=== PATIENT | female | born 1940 | race African-American/Black ===

== ENCOUNTER 2024-09-09 23:23 | Emergency (ER) | payer MEDICARE, OTHER ==
[~2024-09-09] VITALS: Ht 167.6 cm; Wt 85.0 kg
[~2024-09-09 23:23] MED LIST: ALB0.5UD IH; ALPR-624 PO; ASPI-1265 PO; ATOR20TA66 PO; CLOP75TA34 PO; DULA1.5P SUBCUT; EMPA10TA PO; ERGO500041 PO; EZET10TA48 PO; FLUT1BLS4 INH; HYDR25TA90 PO; INSU100V41; LACT-373 PO; LOP12.5T PO; LOSA50TA64 PO; UBRO100T; [UNRECOGNIZED DRUG - CODE]
[2024-09-10] MEDS: ibuprofen tablet 400 MG TABLET PO ONE (01:20)
[2024-09-10] MEDS: hydrALAZINE 25 MG tablet PO ONE (01:30)
[2024-09-10 01:32] VITALS: TEMP 98.2
[2024-09-10 02:09] VITALS: BP 197/86; PULSE 62; RESP 18; O2SAT 99
== END 2024-09-10 02:18 | disposition home or self-care (01) ==
LOC: ER 23:24
DX: S00.83XA Contusion of other part of head, initial encounter (principal); W07.XXXA Fall from chair, initial encounter; Y93.89 Activity, other specified; Y92.89 Other specified places as the place of occurrence of the external cause; Y99.8 Other external cause status
CPT/HCPCS: 70450; 70486; 72125; 99284

== ENCOUNTER 2024-11-03 04:31 | Emergency (ER) | payer MEDICARE, OTHER ==
[~2024-11-03] VITALS: Ht 154.9 cm; Wt 66.8 kg
--- NOTE | 2024-11-03 04:50 | Physician Documentation ---
History of Present Illness ~ Chief Complaint: Headache Stated Complaint: BACK PAIN/HEADACHE Time Seen by MD: 04:46 OK to notify your PCP?: Yes Primary Medical Doctor: none Source: patient Mode of Arrival: POV Exam Limitations: no limitations HPI This is a very pleasant 83-year-old female who comes in for evaluation of left- sided headache. She has history of migraines but they typically are on the right side. The headache has been present for the last several days. No obvious trigger, trauma provocation. His that this is really bad headache, but did not attempt to treat it. No particular palliating or aggravating factors. Denies photophobia. Also reports chronic back pain. Exacerbated in the last couple of days as well. No red flags of back pain such as bladder or bowel incontinence, urinary retention, saddle paresthesias. Denies any other concerns. Denies focal or lateralizing deficits. Able to continue to ambulate with her cane. No concern for tobacco, alcohol or illicit substances use Medication Reconciliation Allergies: Coded Allergies: No Known Allergies (Unverified , 11/03/24) Scheduled Aspirin (Aspirin), 1 TAB.CHEW PO DAILY, (Reported) Atorvastatin Calcium (Atorvastatin Calcium), 40 MG PO DAILY Clopidogrel Bisulfate (Clopidogrel), 75 MG PO DAILY Dulaglutide (Trulicity), 0.5 ML SUBCUT Q7D, (Reported) Empagliflozin (Jardiance), 1 TAB PO DAILY, (Reported) Ergocalciferol (Vitamin D2) (Vitamin D2), 1 CAP PO Q7D, (Reported) Ezetimibe (Ezetimibe), 10 MG PO DAILY Fluticasone/Umeclidin/Vilanter (Trelegy Ellipta 100-62.5-25), 1 PUFFS INH DAILY, (Reported) Hydralazine Hcl* (Apresoline*), 100 MG PO Q8H Lactulose (Lactulose), 30 ML PO QAM, (Reported) Losartan Potassium (Losartan Potassium), 100 MG PO DAILY Metoprolol Tartrate (Lopressor tablet), 1 TAB PO Q12H, (Reported) Scheduled PRN Albuterol Sulfate Nebs* (Proventil Nebs*), 2.5 MG IH Q4H PRN for SOB or wheezing , (Reported) Alprazolam* (Xanax*), 1 TAB PO Q12H PRN PRN for anxiety, (Reported) Miscellaneous Medications Insulin Degludec (Tresiba), (Reported) Insulin Degludec (Insulin Degludec), (Reported) Ubrogepant (Ubrelvy), (Reported) Past Medical History Alcohol Use: None Drug Use: none Lives with: Family Lives In: Home Review of Systems All Other Systems at this time: Reviewed and Negative ROS 10 point review of systems was performed and unless noted above in HPI is negative for acute process/complaint. Physical Exam Vital Signs: RN Vital Signs have been reviewed: Yes, Temperature: 97.5, Source: Temporal, Heart Rate: 57, Respiratory Rate: 18, BP: 144/78, Pulse Oximetry: 99, Weight: 66.820 Physical Exam GENERAL: Awake, alert, oriented, GCS 15, no apparent distress, non-toxic appearing, answers questions, follows commands appropriately. HEENT: Atraumatic, normocephalic, pupils equal, extraocular muscles intact, sclerae anicteric, mucus membranes moist, oropharynx is clear, no stridor. NECK: supple, full active range of motion, trachea midline, no thyromegaly, no lymphadenopathy, no JVD. CARDIOVASCULAR: regular rate/rhythm, no murmurs/gallops/rubs, Pulses are 2+ in all extremities and symmetric. Capillary refill less than 2 seconds. PULMONARY: Nonlabored, good air movement ,no respiratory distress, speaking in full sentences, clear to auscultation bilaterally, no wheezing, no ronchi, no rales, no accessory muscle use. GASTROINTESTINAL: Soft, non-tender, non-distended, normal active bowel sounds, no organomegaly, no pulsatile masses, no CVA tenderness. NEUROLOGIC: Lucid with normal mental status. Normal facial symmetry. Moves all extremities symmetrically and with purpose. No truncal ataxia. Speech is fluid without evidence of dysarthria or aphasia, no focal deficits appreciated. MUSCULOSKELETAL: There is full range of motion of all extremities. There is no joint pain or joint swelling or joint erythema. There is no muscle pain or tenderness or swelling. EXTREMITIES: warm, well-perfused, no cyanosis, no clubbing, no edema, no acute deformities. Skin: warm, dry, no rashes or lesions, no jaundice, no petechiae orpurpura. No ecchymosis. PSYCHIATRIC: Normal affect, normal insight, normal concentration. Focused exam: [] Progress Results/Orders Reviewed/noted all lab results: Yes Results/Orders Orders - DEREK MARIA MD Hydralazine Tablet (Apresoline Tablet) (11/03/24 16:00) Completed Orders - DEREK MARIA MD Metoprolol Tartrate Tablet (Lopressor Ta (11/03/24 10:10) Metoprolol Tartrate Tablet (Lopressor Ta (11/03/24 10:10) Medications Received in ER Medications (Trade) Dose Ordered Sig/Cheyanne Route PRN Reason Start Time Stop Time Status Last Admin Dose Admin (Compazine inj) 5 mg ONCE ONCE IV 11/03/24 04:50 11/03/24 04:52 DC 11/03/24 05:45 5 MG Sodium Chloride 500 ml @ 1,000 mls/hr ONCE ONCE IV 11/03/24 04:50 11/03/24 05:19 DC 11/03/24 05:48 1,000 MLS/HR (Toradol inj. 30mg/ml) 15 mg ONCE ONCE IV 11/03/24 05:30 11/03/24 05:31 DC 11/03/24 05:42 15 MG Vital Signs 11/03/24 11/03/24 11/03/24 11/03/24 04:33 05:42 06:20 07:15 Temp 97.5 98.4 Pulse 57 58 54 Resp 18 14 16 16 B/P (MAP) 144/78 223/76 (125) 217/77 (123) Pulse Ox 99 94 99 O2 Flow Rate 0 2.0 11/03/24 11/03/24 11/03/24 07:28 08:30 09:30 Pulse 66 56 54 Resp 19 22 20 B/P (MAP) 240/81 (133) 197/72 (113) 192/67 (108) Pulse Ox 99 100 100 O2 Flow Rate 2.0 2.0 2.0 Laboratory Tests Test 11/03/24 05:10 11/03/24 08:38 White Blood Count 7.2 Red Blood Count 3.89 L Hemoglobin 11.3 L Hematocrit 33.9 L Mean Corpuscular Volume 87.3 Mean Corpuscular Hemoglobin 29.0 Mean Corpuscular Hemoglobin Concent 33.2 Red Cell Distribution Width 15.1 H Platelet Count 202 Mean Platelet Volume 8.2 Neutrophils (%) (Auto) 54.4 Lymphocytes (%) (Auto) 27.9 Monocytes (%) (Auto) 14.1 H Eosinophils (%) (Auto) 2.8 Basophils (%) (Auto) 0.8 Neutrophils # (Auto) 3.9 Lymphocytes # (Auto) 2.0 Monocytes # (Auto) 1.0 H Eosinophils # (Auto) 0.2 Basophils # (Auto) 0.1 CBC Comment Sodium Level 142 Potassium Level 4.0 Chloride Level 109 H Carbon Dioxide Level 26.2 Anion Gap 7 L Blood Urea Nitrogen 30 H Creatinine 1.58 H Estimated GFR/1.73 m2 38 BUN/Creatinine Ratio 19.0 Glucose Level 143 H Calcium Level 9.6 Albumin 3.0 L Chemistry Comments SARS-CoV-2 Antigen (Rapid) Negative Re-Evaluation Re-Evaluation : Re-Evaluation: Improved Progress Patient was signed out to me in the morning from the nighttime physician. Patient's laboratory work was obtained after the patient received a migraine cocktail including fluids. Laboratory work did not show any elevated WBC which is reassuring against an acute infection. She has chronic anemia with a hemoglobin 11 and 33. Similar to prior visit. Chemistry patient's chemistry shows a BUN of 30 and a creatinine of 1.58 some prerenal dehydration however her baseline creatinine is 1.6. Patient is doing well. Spoke to the family who mentioned she has been having aches myalgias severe headache. I informed her that the CAT scan was reassuring. However patient may be having COVID like symptoms. COVID test was then obtained she has no fevers or cough and is negative. Patient was hypertensive and was given oral medications. Patient's symptoms resolved and she is pain-free. Continuous waiter/waitress cafeteria interpretation shows normal sinus rhythm heart rate 50s, no ectopy, normal, my interpretation. Pulse oximetry monitor interpretation shows normal oxygenation at 99% room air. However post medical treatment oxygen saturation dropped to 92% room air currently on 2 L oxygen at 99%. A bit low, abnormal, my interpretation. Medical Decision Making Additional info obtained from: old records Findings Facility Status: ED Holds, RME process The plan was discussed with the patient, who demonstrates clear understanding of the plan and is in agreement with the plan unless otherwise noted in the chart. All questions have been answered, all concerns were addressed unless otherwise documented. I was available throughout their ED stay for frequent reassessment and questions. Differential Diagnoses (considered and possible or likely): [Tension headache, migraine, less likely cluster headache, less likely trigeminal neuralgia, unlikely to represent subdural, subarachnoid, intracranial tumor] ??Differential Diagnoses (considered and unlikely, not requiring evaluation currently): [No evidence of lateralizing signs to suspect a stroke] MDM Data Please see [facility] for the following: Independent Historians and external Records Review. Historian: [Patient] Independent Historians: ?[Daughter, record review] Medication Management: [Reviewed medication list] Social History and determinants: [Reviewed] Please see the body of the note for the following: Any independent interpretations of ECG, imaging studies. All vitals signs/haemodynamics, ordered tests were independently reviewed and interpreted by myself. Nursing triage complaint and vitals reviewed, additional nursing notes were reviewed as available and I agree unless otherwise noted or documented in contradiction in the chart Vital Signs: Independently reviewed Labs: Independently interpreted Imaging: Independently interpreted Old Medical Records: Independently reviewed, see [facility] for relevant summary and information Pulse Oximetry: [99%] interpreted as [normal on room air] by me [Project Technician: [Regular Rate, Regular rhythm, no ectopy, NSR] reviewed and interpreted by me] Additionally notably showing: [] Tests considered but not ordered include: [] Social Determinants of Health Impact: Patient was evaluated in [facility] [place] to healthcare due to below par ratio of patient to medical providers. [] Comorbid Conditions Impacting Present Evaluation and Care/Treatment: [] Management Discussions with other Healthcare Providers: [] Treatment and Disposition Medication Management (Given or considered): []. See EMR for details Consideration for Hospitalization/Escalation/Deescalation of Care: Admission for observation has been considered, [however the patient is able to tolerate p.o., their symptoms are controlled, they are able to rely on oral medications, and their chief complaint/diagnosis can be managed on outpatient basis.] ?ED Course:?[] ?Shared decision making:?[] Code status:?FULL Please see the full Electronic Medical Record for full details of nursing documentation, medications list, other records of complete past medical history and conditions, vital signs, laboratory studies, and any radiologic study interpretations by radiologists. Portions of this note were completed using [facility] dictation software and as a result there may exist minor errors in spelling. I have reviewed elements of past family and social history and agree as included in note. Differential Dx:Considerations: Include: MCKEE-Cluster, MCKEE-Migraine, MCKEE- Hypertensive, MCKEE-Muscular contraction, MCKEE-Post lumbar puncture, Carbon monoxide toxicity, Close head injuyr, CVA, Fever induced, Hemorrhage-Epidural, Hemorrhage-Intracerebral, Hemorrhage-Subarachnoid, Hemorrhage-Subdural, Mass lesion, Meningitis, Post-traumtic, Pseudotumor cerebri, Sinusitis, Temporal arteritis, Trigeminal neuralgia, Other Departure Disposition: HOME / SELF CARE / HOMELESS Impression: Primary Impression: Headache Qualified Codes: R51.9 - Headache, unspecified Additional Impression: Accelerated hypertension Condition: Stable Discharge Instructions: Headache Referrals: NO PRIMARY CARE PROVIDER (PCP) Education Educated: Patient Educated regarding: diagnosis, need for follow up Signature Scribe Signature: No scribe Attestation: This note accurately reflects clinical decisions, work performed by myself, Jaya Jackson, The note accurately reflects work and decisions made by me.Derek Maria MD 11/03/24 07:57 JAYA JACKSON DO November 03, 2024 04:50 DEREK MARIA MD November 03, 2024 07:57
[2024-11-03] MEDS: diphenhydrAMINE 50 mg/ml inj IV ONE (05:41)
[2024-11-03] MEDS: ketorolac trometh 30MG/ML vial 30 MG/ML VIAL IV ONE (05:42)
[2024-11-03] MEDS: proCHLORperazine 10 MG/2 ml inj IV ONE (05:45)
[2024-11-03] MEDS: normal saline 500ml IV soln 500 ML IV ONE (05:48)
[2024-11-03] MEDS: HYDROcodone/acetaminophen 5mg/325mg tablet PO ONE (05:49)
--- NOTE | 2024-11-03 05:49 | RADIOLOGY REPORT ---
EXAM: CT CT HEAD INDICATION: Left-sided headache, worst of life TECHNIQUE: CT of the head without intravenous contrast. Radiation Dose Information: CT Dose: mGy. Dose-length product is 941 mGy*cm The dose indicators for CT are the volume Computed Tomography (CT) Dose Index (CTDIvol) and the Dose Length Product (DLP), and are measured in units of mGy and mGy-cm, respectively. These indicators are not patient dose, but values generated from the CT scanner acquisition factors. The report includes radiation exposure data for exposures received during this examination. COMPARISON: CT CT HEAD on DOS: 09/09/24, MR MRI HEAD on DOS: 09/03/24, CT CT HEAD on DOS: 09/02/24 FINDINGS: There is no evidence of acute intracranial hemorrhage, extra-axial collection, mass effect, midline s hift, herniation or hydrocephalus. The ventricles, sulci and cisterns are age appropriate. The cardona-white differentiation is intact. The visualized paranasal sinuses and mastoid air cells are clear. The surrounding soft tissues and osseous structures are unremarkable. IMPRESSION: 1. No acute intracranial abnormality.
[2024-11-03 06:01] LABS: ANION GAP 7 (8-16); BLOOD UREA NITROGEN 30 MG/DL (7-18); CALCIUM 9.6 MG/DL (8.5-10.1); CHLORIDE 109 MMOL/L (99-107); CREATININE 1.58 MG/DL (0.40-0.90); GLUCOSE 143 MG/DL (70-104); SODIUM 142 MMOL/L (135-145); TOTAL CARBON DIOXIDE 26.2 MMOL/L (24-32); eCRCL 20 ML/MIN; eGFR 38 ML/MIN
[2024-11-03 06:17] LABS: BASOPHILS # (AUTO) 0.1 X10'3 (0-0.2); BASOPHILS % (AUTO) 0.8 % (0-1); EOSINOPHILS # (AUTO) 0.2 X10'3 (0-0.9); EOSINOPHILS % (AUTO) 2.8 % (0-6); HEMATOCRIT 33.9 % (35.0-45.0); HEMOGLOBIN 11.3 g/dl (12.0-16.0); LYMPHOCYTES % (AUTO) 27.9 % (21-51); MEAN CORPUSCULAR HGB CONC 33.2 g/dL (33.0-36.5); MEAN CORPUSCULAR VOLUME 87.3 FL (78-98); MEAN PLATELET VOLUME 8.2 FL (7.4-10.4); MONOCYTES % (AUTO) 14.1 % (2-12); NEUTROPHILS # (AUTO) 3.9 X10'3 (1.8-7.7); NEUTROPHILS % (AUTO) 54.4 % (42-75); PLATELET COUNT 202 X10'3 (140-440); RED BLOOD COUNT 3.89 X10'6 (4.20-5.60); RED CELL DISTRIBUTION WIDTH 15.1 % (11.5-14.5); WHITE BLOOD COUNT 7.2 X10'3 (4.5-11.0)
[2024-11-03 07:15] VITALS: TEMP 98.4
[2024-11-03 09:30] VITALS: BP 192/67; PULSE 54; RESP 20; O2SAT 100
[2024-11-03] MEDS ORDERED: metoprolol tartrate 50mg tablet PO ONE (10:10)
[2024-11-03] MEDS ORDERED: metoprolol tartrate 25mg tablet PO ONE ×2 (10:10→10:35)
[2024-11-03] MEDS ORDERED: hydrALAZINE 25 MG tablet PO SCH (16:00)
== END 2024-11-03 13:00 | disposition home or self-care (01) ==
LOC: ER 04:32
DX: R51.9 Headache, unspecified (principal); I10 Essential (primary) hypertension; M54.9 Dorsalgia, unspecified; Z20.822 Contact with and (suspected) exposure to COVID-19; Z79.82 Long term (current) use of aspirin
CPT/HCPCS: 36415; 70450; 80048; 85025; 87811; 96374; 96375; 99285; J0780; J1885; J7030; J7040

== ENCOUNTER 2025-01-29 16:05 | Emergency (ER) | payer MEDICARE, OTHER ==
[~2025-01-29] VITALS: Ht 154.9 cm; Wt 67.5 kg
[~2025-01-29 16:05] MED LIST changes: +ERGO125018 PO; -ERGO500041 PO
--- NOTE | 2025-01-29 20:14 | Physician Documentation ---
History of Present Illness ~ Chief Complaint: Hypertension Stated Complaint: HIGH BP Time Seen by MD: 19:39 Primary Medical Doctor: none Mode of Arrival: EMS HPI PATIENT IS SEEN TODAY with complaints of having been seen to your from her primary care office for hypertensive urgency with systolic pressure around 212 systolic. Patient states she has very labile blood pressure and sometimes goes as high as 250 systolic and last week had a hospital or ER visit due to hypotension with her systolic going down below 100 in the 90s and patient was symptomatic at that time. Patient currently is asymptomatic and denies any headache or chest pain or nausea or vomiting or diarrhea. Patient has no other concern or complaint at this time. Medication Reconciliation Allergies: Coded Allergies: acetaminophen (Verified Allergy, Intermediate, 01/29/25) hydrocodone (Verified Allergy, Intermediate, 01/29/25) metformin (Verified Allergy, Unknown, 01/29/25) NAUSEOUS Uncoded Allergies: ANTIHISTAMINES (Allergy, Unknown, 01/29/25) NAUSEA VIAXIN (Allergy, Unknown, 01/29/25) NAUSEA Scheduled Aspirin (Aspirin), 1 TAB.CHEW PO DAILY, (Reported) Atorvastatin Calcium (Atorvastatin Calcium), 40 MG PO DAILY Clopidogrel Bisulfate (Clopidogrel), 75 MG PO DAILY Dulaglutide (Trulicity), 0.5 ML SUBCUT Q7D, (Reported) Empagliflozin (Jardiance), 1 TAB PO DAILY, (Reported) Ergocalciferol (Vitamin D2) (Vitamin D2), 1 CAP PO Q7D, (Reported) Ezetimibe (Ezetimibe), 10 MG PO DAILY Fluticasone/Umeclidin/Vilanter (Trelegy Ellipta 100-62.5-25), 1 PUFFS INH DAILY, (Reported) Hydralazine Hcl* (Apresoline*), 100 MG PO Q8H Lactulose (Lactulose), 30 ML PO QAM, (Reported) Losartan Potassium (Losartan Potassium), 100 MG PO DAILY Metoprolol Tartrate (Lopressor tablet), 1 TAB PO Q12H, (Reported) Scheduled PRN Albuterol Sulfate Nebs* (Proventil Nebs*), 2.5 MG IH Q4H PRN for SOB or wheezing, (Reported) Alprazolam* (Xanax*), 1 TAB PO Q12H PRN PRN for anxiety, (Reported) Miscellaneous Medications Insulin Degludec (Tresiba), (Reported) Insulin Degludec (Insulin Degludec), (Reported) Ubrogepant (Ubrelvy), (Reported) Past Medical History Alcohol Use: None Drug Use: none Lives with: Family Lives In: Home Review of Systems Constitutional: Denies: chills, fever, weakness Eyes: Denies: pain, blurred vision ENT: Denies: ear pain, nose pain, throat pain, mouth pain Respiratory: Denies: cough, shortness of breath Cardiovascular: Denies: chest pain, palpitations Gastrointestinal: Denies: abdominal pain, nausea, vomiting Genitourinary: Denies: burning, dysuria Female Genitalia: Denies: vaginal discharge, pelvic pain Neurological: Denies: headache, dizziness Musculoskeletal: Denies: pain, swelling Integumentary: Denies: rash, lesions Allergic/Immunologic: Denies: hives, itching Hematologic/Lymphatic: Denies: no symptoms reported Psychiatric: Denies: depression, anxiety Physical Exam Vital Signs: Temperature: 97.6, Source: Oral, Heart Rate: 60, Respiratory Rate: 17, BP: 185/95, Pulse Oximetry: 95, Weight: 67.450 Oxygen Flow Rate: 0 Physical Exam General: Awake and Alert, no acute distress. HEENT: Conjunctiva pink, Sclera clear, Mucus Membranes moist. Neck: Supple without masses and tenderness. Resp: Unlabored. Lungs clear to auscultation bilaterally. Heart: Regular Rate and rhythm, normal S1 and S2 without murmur, rub or gallop. Abdomen: Soft and non tender no organomegaly Extremities: No cyanosis,clubbing or edema. Skin: Warm and Dry. Progress Results/Orders Results/Orders Medications Received in ER Medications (Trade) Dose Ordered Sig/Cheyanne Route PRN Reason Start Time Stop Time Status Last Admin Dose Admin (Tylenol tablet) 325 mg ONCE ONCE PO 01/29/25 16:30 01/29/25 16:31 DC 01/29/25 16:34 325 MG Vital Signs 01/29/25 01/29/25 01/29/25 01/29/25 16:06 16:15 16:16 16:30 Temp 97.6 97.6 97.6 Pulse 57 55 54 Resp 17 16 19 B/P (MAP) 201/77 201/77 (118) 201/79 (119) Pulse Ox 99 97 100 O2 Flow Rate 0 0 0 01/29/25 01/29/25 01/29/25 01/29/25 16:45 17:00 19:01 19:01 Temp 97.6 97.6 97.6 Pulse 55 60 60 Resp 22 17 17 B/P (MAP) 171/71 (104) 215/94 (134) 185/95 (125) Pulse Ox 96 95 95 O2 Flow Rate 0 0 0 Laboratory Tests Test 01/29/25 16:26 Glucometer 132 H Medical Decision Making Findings PATIENT IS SEEN TODAY with complaints of having been seen to your from her primary care office for hypertensive urgency with systolic pressure around 212 systolic. Patient states she has very labile blood pressure and sometimes goes as high as 250 systolic and last week had a hospital or ER visit due to hypotension with her systolic going down below 100 in the 90s and patient was symptomatic at that time. Patient currently is asymptomatic and denies any headache or chest pain or nausea or vomiting or diarrhea. Patient has no other concern or complaint at this time. Patient declined admission at this time. Patient also declined any pharmacologic treatment of her hypertension at this time. Patient states she will follow up with her primary care provider and her drug abuse program coordinator for further eval and treatment of her blood pressure. Patient will return to ED with any worsening, concerning or changing symptoms. Departure Disposition: HOME / SELF CARE / HOMELESS Impression: Primary Impression: Hypertensive urgency Condition: Stable Discharge Instructions: Hypertension, Adult Additional Instructions: Patient declined admission at this time. Patient also declined any pharmacologic treatment of her hypertension at this time. Patient states she will follow up with her primary care provider and her drug abuse program coordinator for further eval and treatment of her blood pressure. Patient will return to ED with any worsening, concerning or changing symptoms. Referrals: NO PRIMARY CARE PROVIDER (PCP) Additional Comment Additional Comment I did discuss admission with the patient however patient refused at this time. Signature Scribe Signature: No scribe Attestation: No scribe ALEJANDRA HOPKINS PAC Jan 29, 2025 20:14
[2025-01-29 20:30] VITALS: BP 207/68; PULSE 63; RESP 16; TEMP 97.6; O2SAT 100
[2025-01-31] MEDS ORDERED: OXYC-658 PO (19:03)
[2025-01-31] MEDS ORDERED: HYDR-3686 PO (19:03)
== END 2025-01-29 20:30 | disposition home or self-care (01) ==
LOC: ER 16:06
DX: I16.0 Hypertensive urgency (principal); I10 Essential (primary) hypertension; Z88.5 Allergy status to narcotic agent; Z79.899 Other long term (current) drug therapy
CPT/HCPCS: 82948; 99285

== ENCOUNTER 2025-04-05 14:19 | Emergency (ER) | payer MEDICARE, OTHER ==
[~2025-04-05] VITALS: Ht 154.9 cm; Wt 63.8 kg
[~2025-04-05 14:19] MED LIST changes: -ALPR-624 PO; -CLOP75TA34 PO; -EMPA10TA PO; -EZET10TA48 PO; -INSU100V41; -UBRO100T; -[UNRECOGNIZED DRUG - CODE]
--- NOTE | 2025-04-05 14:25 | Physician Documentation ---
History of Present Illness ~ Stated Complaint: WEAKNESS Time Seen by MD: 14:24 OK to notify your PCP?: Yes Primary Medical Doctor: [facility] HPI This is an 84-year-old female who presents to the emergency department per ambulance with complaints of weakness and shortness of Breath. She notes a history of congestive heart failure, diabetes, COPD. She reports that she does have some swelling in her feet and ankles, does not take a water pill. She notes a recent hospitalization in this facility. Medication Reconciliation Allergies: Coded Allergies: hydrocodone (Verified Allergy, Intermediate, ITCHING ALL OVER, 02/23/25) metformin (Verified Allergy, Unknown, 02/23/25) NAUSEOUS Uncoded Allergies: ANTIHISTAMINES (Allergy, Unknown, 01/29/25) NAUSEA VIAXIN (Allergy, Unknown, 01/29/25) NAUSEA Scheduled Aspirin (Aspirin), 1 TAB.CHEW PO DAILY, (Reported) Atorvastatin Calcium (Atorvastatin Calcium), 40 MG PO DAILY Dulaglutide (Trulicity), 0.5 ML SUBCUT Q7D, (Reported) Ergocalciferol (Vitamin D2) (Vitamin D2), 1 CAP PO Q7D, (Reported) Fluticasone/Umeclidin/Vilanter (Trelegy Ellipta 100-62.5-25), 1 PUFFS INH DAILY, (Reported) Hydralazine Hcl* (Apresoline*), 100 MG PO Q8H Lactulose (Lactulose), 30 ML PO QAM, (Reported) Losartan Potassium (Losartan Potassium), 100 MG PO DAILY Metoprolol Tartrate (Lopressor tablet), 1 TAB PO Q12H, (Reported) Scheduled PRN Albuterol Sulfate Nebs* (Proventil Nebs*), 2.5 MG IH Q4H PRN for SOB or wheezing, (Reported) Past Medical History Past Medical History: CVA/TIA/Stroke, Congestive Heart Failure, Hypertension, COPD, Chronic Kidney Disease, Diabetes, Hypothyroidism Alcohol Use: Sober Drug Use: none Lives with: Family Lives In: Home Occupation: retired Review of Systems ROS As stated above in the HPI, otherwise all systems are reviewed and negative. Physical Exam Physical Exam General: Alert, no apparent distress. HEENT: PERRL, EOMI, no injection, dry mucous membranes. Neck: Full range of motion. Respiratory: Lungs clear, no respiratory distress. Dim bases. Chest: No accessory muscle use. Cardiovascular: Regular rate and rhythm, no murmurs. Gastrointestinal: Soft, nontender, nondistended. Bowels sounds present. Extremities: Normal range of motion, no deformity. Neurologic: Oriented x4. Psychiatric: Normal mood and affect. Skin: Normal color, warm and dry. 1+ edema BLE. Progress Results/Orders Results/Orders Orders - MARLON HAZEL SEATING UPHOLSTERER Chest,Single View (04/05/25 14:30) * Iv Access / Saline Lock * (04/05/25 14:30) Covid19 Binax Poc Result Entry (04/05/25 16:02) Cult Urine + [place] Ct (04/05/25 17:42) Ceftriaxone/D0y-Xlphyvgh 1gm (Rocephin 1 (04/05/25 18:00) Completed Orders - MARLON HAZEL SEATING UPHOLSTERER CMP (04/05/25 14:30) Cbc/Diff (04/05/25 14:30) Lipase (04/05/25 14:30) Chest,Single View (04/05/25 14:30) Electrocardiogram (04/05/25 ) Man Diff (04/05/25 14:40) Normal Saline 1000ml (0.9% Sodium Chlori (04/05/25 15:20) Ondansetron Inj. (Zofran 4mg/2ml Vial) (04/05/25 15:20) Hs Troponin I W Calculations (04/05/25 15:44) Influenza Type A&B Rapid Test (04/05/25 16:02) PBNP (04/05/25 14:40) Ua W/Microscopic, Cult If Ind (04/05/25 17:23) Medications Received in ER Medications (Trade) Dose Ordered Sig/[place] Route PRN Reason Start Time Stop Time Status Last Admin Dose Admin Sodium Chloride 1,000 ml @ 1,000 mls/hr ONCE ONCE IV 04/05/25 15:20 04/05/25 16:19 DC 04/05/25 15:50 1,000 MLS/HR Vital Signs 04/05/25 04/05/25 04/05/25 04/05/25 14:25 14:35 14:35 15:51 Temp 98.4 98.4 98.4 Pulse 71 70 65 Resp 22 18 20 B/P (MAP) 161/121 161/121 (134) 149/62 (91) Pulse Ox 100 100 100 O2 Flow Rate 0 0 0 04/05/25 17:41 Temp 98.4 Pulse 74 Resp 20 B/P (MAP) 177/78 (111) Pulse Ox 99 O2 Flow Rate 0 Laboratory Tests Test 04/05/25 14:40 04/05/25 14:50 04/05/25 16:27 04/05/25 17:23 White Blood Count 7.0 Red Blood Count 3.50 L Hemoglobin 10.4 L Hematocrit 30.7 L Mean Corpuscular Volume 87.7 Mean Corpuscular Hemoglobin 29.8 Mean Corpuscular Hemoglobin Concent 34.0 Red Cell Distribution Width 16.2 H Platelet Count 205 Mean Platelet Volume 7.5 Neutrophils (%) (Auto) 57.7 Lymphocytes (%) (Auto) 23.3 Monocytes (%) (Auto) 15.2 H Eosinophils (%) (Auto) 3.0 Basophils (%) (Auto) 0.8 Neutrophils # (Auto) 4.1 Lymphocytes # (Auto) 1.6 Monocytes # (Auto) 1.1 H Eosinophils # (Auto) 0.2 Basophils # (Auto) 0.1 CBC Comment Differential Total Cells Counted 100 Neutrophils % (Manual) 62.0 Lymphocytes % (Manual) 23.0 Monocytes % (Manual) 10.0 Eosinophils % (Manual) 5.0 Platelet Estimate Normal Red Blood Cell Morphology Perf Basophilic Stippling Anisocytosis 1+ Stomatocytes Elliptocytes Few Sodium Level 142 Potassium Level 4.3 Chloride Level 108 H Carbon Dioxide Level 26.3 Anion Gap 8 Blood Urea Nitrogen 49 H Creatinine 1.92 H Estimated GFR/1.73 m2 30 BUN/Creatinine Ratio 25.5 H Glucose Level 138 H Calcium Level 9.5 Total Bilirubin 0.3 Aspartate Amino Transf (AST/SGOT) 17 Alanine Aminotransferase (ALT/SGPT) 27 Alkaline Phosphatase 68 Troponin I High Sensitivity 14 Pro-B-Type Natriuretic Peptide 832 H Total Protein 7.4 Albumin 3.0 L Globulin 4.4 H Albumin/Globulin Ratio 0.7 L Lipase 102 H Chemistry Comments Glucometer 116 H Influenza Type A Antigen Negative Influenza Type B Antigen Negative SARS-CoV-2 Antigen (Rapid) Negative Urine Specimen Description Non-specified Urine Color Yellow Urine Clarity Clear Urine pH 7.0 Urine Specific [place] 1.010 Urine Protein 30 H Urine Glucose (UA) Negative Urine Ketones Negative Urine Occult Blood Negative Urine Nitrite Negative Urine Bilirubin Negative Urine Urobilinogen 0.2 Urine Leukocyte Esterase Small H Urine RBC 10-20 Urine WBC 20-30 H Urine Squamous Epithelial Cells Few Urine Bacteria Few Urine Mucus Few Urine Culture Indicated Indicated Volume Urine Centrifuged 10 ml Urine Comment Medical Decision Making Additional information obtaine: old records Findings Previous admission to this hospital on 02/2025 after a fall. History TIA, hypertension, type 2 diabetes, hyperlipidemia, congestive heart failure, CKD, hypothyroidism. Former tobacco smoker, no current alcohol use. Differential Dx:Considerations: Include: anemia, CVA, dehydration, dysrhythmia, electrolyte imbalance, encephalopathy, Guillain-Friend, hypoglycemia, hypotension, hypovolemia, labyrinthitis, Meniere's disease, myasathenia gravis, myocardial infarction, pulmonary embolus, renal failure, respiratory failure, TIA, VBI, vertigo central, vertigo peripheral, vestibular neuronitis Additional Information Most Likely Diagnoses: Anemia of chronic kidney disease is the most likely cause of weakness and dyspnea in an elderly patient with acute on chronic kidney disease and mild anemia. CKD-associated anemia is typically normocytic and hypoproliferative, resulting from decreased erythropoietin production, iron deficiency, and shortened red cell survival. This anemia is associated with reduced exercise tolerance, fatigue, and dyspnea, and is common as GFR declines.[1] Uremia from acute on chronic kidney injury can cause nonspecific symptoms such as weakness, nausea, and dyspnea due to accumulation of uremic toxins. Uremic symptoms may occur even with only mild laboratory worsening and can affect mult iple organ systems.[1] Electrolyte disturbance (e.g., hyperkalemia, hyponatremia, metabolic acidosis) is common in CKD and can present with weakness, nausea, and dyspnea. Even mild derangements may be symptomatic in older adults.[2] Congestive heart failure or fluid overload may present with dyspnea and weakness, especially in CKD patients due to impaired volume regulation. However, a normal chest X-ray makes overt pulmonary edema less likely.[3] Hypothyroidism should be considered, as it can cause fatigue, weakness, and dyspnea, and is more common in older women. CKD may increase risk for hypothyroidism.[4] Most Important Not to Miss Diagnoses: Acute coronary syndrome may present atypically in older adults, with weakness, nausea, and dyspnea rather than chest pain. Serial troponins and ECG are required to rule out ACS, as recommended by the [employer].[5] Pulmonary embolism can cause acute dyspnea and weakness, even with a normal chest X-ray. D-dimer testing and clinical probability assessment (e.g., Wells score) are indicated to rule out PE.[6] Acute occult gastrointestinal bleed may cause symptomatic anemia and weakness, even without overt bleeding. Fecal occult blood testing and consideration of endoscopic evaluation are warranted in unexplained anemia.[7] Departure Time of Disposition: 17:58 Disposition: HOME / SELF CARE / HOMELESS Impression: Primary Impression: Acute urinary tract infection Condition: Stable Discharge Instructions: Urinary Tract Infection, Adult Additional Instructions: UA suggests UTI, will be treated with antibiotics. Culture is pending with results in two days. Please bring Kayla back if worse at any time. Encourage fluids. Referrals: NO PRIMARY CARE PROVIDER (PCP) Prescriptions Sulfamethoxazole/Trimethoprim (Bactrim Ds Tablet) 800 Mg-160 Mg Tablet 1 EACH PO BID for 5 Days, #10 TAB Prov: MARLON HAZEL NP 04/05/25 Education Educated: Patient, Family Educated regarding: diagnosis, treatment, prognosis, need for follow up Signature Scribe Signature: x Attestation: The note accurately reflects work and decisions made by me.Marlon Prasad NP 04/05/25 14:29 MARLON HAZEL NP Apr 05, 2025 14:25
--- NOTE | 2025-04-05 14:44 | ELECTROCARDIOGRAPH REPORT ---
[facility] Test Date: 2025-04-05 Test Time: 14:40:53 Pat Name: MANDA SANTIAGO Department: [facility] Patient ID: [facility]-[id number] Room: Gender: F Gifts Officer: : 1940 Requested By: MARLON HAZEL Order Number: [id number] Reading MD: Dr. Derek Maria Measurements Intervals [place] Rate: 62 P: 68 [place]: 171 QRS: 50 QRSD: 91 T: 93 QT: 406 QTc: 413 Interpretive Statements Sinus rhythm Consider left ventricular hypertrophy Nonspecific T abnormalities, lateral leads Electronically Signed On 04-09-2025 20:44:[address] Derek Maria Please click the below link to view image of tracing.
[2025-04-05 14:52] LABS: MEAN PLATELET VOLUME 7.5 FL (7.4-10.4); RED CELL DISTRIBUTION WIDTH 16.2 % (11.5-14.5)
--- NOTE | 2025-04-05 15:00 | RADIOLOGY REPORT ---
CHEST RADIOGRAPH Indication: weakness, dyspnea Technique: Single frontal view of the chest was obtained Comparison: DI CHEST,SINGLE VIEW on DOS: 02/23/25, DI CHEST,SINGLE VIEW on DOS: 01/31/25, DI CHEST,SINGLE VIEW on DOS: 09/02/24 FINDINGS: Lines and Tubes: None Lungs: No focal consolidation. Pleura: No effusion. No pneumothorax. Cardiomediastinal contours: Heart size is within normal limits with moderate atherosclerotic calcification and uncoiling of the aorta. Bones: No acute osseous abnormality. IMPRESSION: No acute cardiopulmonary disease.
[2025-04-05 15:01] LABS: CREATININE 1.92 MG/DL (0.40-0.90); TOTAL CARBON DIOXIDE 26.3 MMOL/L (24-32); eCRCL 16 ML/MIN; eGFR 30 ML/MIN
[2025-04-05 15:13] LABS: ELLIPTOCYTES FEW; EOSINOPHILS % (MANUAL) 5.0 % (0-6); LYMPHOCYTES % (MANUAL) 23.0 % (21-51); MONOCYTES % (MANUAL) 10.0 % (2-12); NEUTROPHILS % (MANUAL) 62.0 % (42-75); PLATELET ESTIMATE NORMAL
[2025-04-05] MEDS: ondansetron/PF 4mg/2ml inj IV ONE (15:50)
[2025-04-05] MEDS: normal saline 1000ml 1,000 ML IV ONE (15:50)
[2025-04-05 16:32] LABS: PRO BRAIN NATRIURETIC PEPTIDE 832 PG/ML (0-450)
[2025-04-05 16:46] LABS: INFLUENZA TYPE A ANTIGEN RAPID NEGATIVE (Negative); INFLUENZA TYPE B ANTIGEN RAPID NEGATIVE (Negative)
[2025-04-05 17:35] LABS: LEUKOCYTE ESTERASE ,URINE SMALL (Neg); NITRITES, URINE NEGATIVE (Neg); OCCULT BLOOD,URINE NEGATIVE (Neg)
[2025-04-05 17:40] LABS: UA COLLECTION TYPE NON-SPECIFIED
[2025-04-05 17:41] LABS: MUCUS STRANDS FEW /LPF (Neg); SQUAMOUS EPITHELIAL CELL,UR FEW /LPF (FEW)
[2025-04-05] MEDS ORDERED: SULF1TAB49 PO (18:01)
[2025-04-05] MEDS: CefTRIAXone/D5W-Rocephin 1gm 50 ML IV ONE ×2 (18:07→18:48)
[2025-04-05 19:05] VITALS: BP 184/81; PULSE 70; RESP 19; TEMP 98.4; O2SAT 96
== END 2025-04-05 19:07 | disposition home or self-care (01) ==
LOC: ER 14:19
DX: N39.0 Urinary tract infection, site not specified (principal); I13.0 Hypertensive heart and chronic kidney disease with heart failure and stage 1 through stage 4 chronic kidney disease, or unspecified chronic kidney disease; E11.22 Type 2 diabetes mellitus with diabetic chronic kidney disease; N18.9 Chronic kidney disease, unspecified; J44.9 Chronic obstructive pulmonary disease, unspecified; E03.9 Hypothyroidism, unspecified; Z86.73 Personal history of transient ischemic attack (TIA), and cerebral infarction without residual deficits; Z88.5 Allergy status to narcotic agent; Z88.8 Allergy status to other drugs, medicaments and biological substances; Z79.899 Other long term (current) drug therapy; Z79.82 Long term (current) use of aspirin; Z20.822 Contact with and (suspected) exposure to COVID-19
CPT/HCPCS: 36415; 71045; 80053; 81001; 82948; 83690; 83880; 84484; 85007; 85025; 87077; 87088; 87186; 87804; 87811; 93005; 96361; 96365; 96366; 99285; J0696; J7030